=== PATIENT | male | born 1975 | race Hispanic/Latino ===

== ENCOUNTER 2016-11-06 15:18 | Emergency (ER) | payer OTHER ==
[2016-11-06 15:40] VITALS: BMI 30.7
[2016-11-06 15:41] VITALS: BP 121/90; PULSE 78; RESP 16; TEMP 98.6; O2SAT 98
--- NOTE | 2016-11-06 15:57 | ED PDOC ---
Arrival/HPI - General Chief Complaint: ENT Problem Time Seen by Provider: 11/06/16 15:50 Historian: Patient - History of Present Illness Narrative History of Present Illness (Text): 11/06/16 15:57 41yo male with PMHx of Hypertension present with right ear pain and feeling of "clogged right ear.. States he saw his PMD last week Monday and was started on Augmentin . He is suppose to take the last Augmentin on Monday. states taking it without relieve. Also reports taking 2tabs of Aleve today without relieve. Denies fever, chills, trauma, discharge from ear, any other complaint. Past Medical History - Provider Review Nursing Documentation Reviewed: Yes - Infectious Disease Hx of Infectious Diseases: None - Cardiac Hx Cardiac Disorders: Yes Hx Hypertension: Yes - Pulmonary Hx Respiratory Disorders: No - Neurological Hx Neurological Disorder: No - HEENT Hx HEENT Disorder: No - Endocrine/Metabolic Hx Endocrine Disorders: No Hx Diabetes Mellitus Type 2: No - Hematological/Oncological Hx Blood Disorders: Yes Hx Cancer: Yes (TESTICULAR) Other/Comment: "tested positive for factor V clotting disorder". R tesitcle removed. - Integumentary Hx Dermatological Disorder: No - Musculoskeletal/Rheumatological Hx Musculoskeletal Disorders: No - Gastrointestinal Hx Gastrointestinal Disorders: Yes Hx Gastroesophageal Reflux: Yes - Genitourinary/Gynecological Hx Genitourinary Disorders: Yes Other/Comment: R testicle cancer - removed - Psychiatric Hx Psychophysiologic Disorder: Yes Hx Anxiety: Yes Hx Substance Use: No - Surgical History Other/Comment: R testicular cancer - removed. Deviated septum - Anesthesia Hx Anesthesia: Yes Hx Anesthesia Reactions: No Hx Malignant Hyperthermia: No Family/Social History - Physician Review Nursing Documentation Reviewed: Yes Family/Social History: Unknown Family HX Smoking Status: chew tob. Hx Alcohol Use: No Hx Substance Use: No Allergies/Home Meds Allergies/Adverse Reactions: Allergies cefuroxime axetil [From Ceftin] Allergy (Verified 11/06/16 15:40) RASH iodine Allergy (Verified 11/06/16 16:04) RASH Penicillins Allergy (Verified 11/06/16 15:40) RASH Home Medications: Home Meds Medication Instructions Recorded Confirmed Losartan [Cozaar] 50 mg PO DAILY 06/30/16 11/06/16 Fluoxetine HCl [Prozac] 20 mg PO DAILY 09/25/16 11/06/16 Amoxicillin/Clavulanate [Augmentin 1 tab PO BID 11/06/16 11/06/16 875 MG-125 MG Tab] Review of Systems - Physician Review All systems were reviewed & negative as marked: Yes - Review of Systems Constitutional: Normal Eyes: Normal ENT: Other (Right ear pain) Respiratory: Normal Cardiovascular: Normal Gastrointestinal: Normal Genitourinary Male: Normal Musculoskeletal: Normal Skin: Normal Neurological: Normal Endocrine: Normal Hemo/Lymphatic: Normal Psychiatric: Normal Physical Exam Vital Signs Reviewed: Yes Vital Signs Temp Pulse Resp BP Pulse Ox 11/06/16 15:40 98.6 F 78 16 121/90 98 Temperature: Afebrile Blood Pressure: Normal Pulse: Regular Respiratory Rate: Normal Appearance: Positive for: Well-Appearing, Non-Toxic, Comfortable Pain Distress: None Mental Status: Positive for: Alert and Oriented X 3 - Systems Exam Head: Present: Atraumatic, Normocephalic Pupils: Present: PERRL Extroacular Muscles: Present: EOMI Conjunctiva: Present: Normal Ears: No: NORMAL TM (Whitish discoloration of right TM /soft tissue noted encroaching into the canal), Erythema, TM Bulging, Fluid, TM Perf Mouth: Present: Moist Mucous Membranes Neck: Present: Normal Range of Motion Respiratory/Chest: Present: Clear to Auscultation, Good Air Exchange. No: Respiratory Distress, Accessory Muscle Use Cardiovascular: Present: Regular Rate and Rhythm, Normal S1, S2. No: Murmurs Abdomen: Present: Normal Bowel Sounds. No: Tenderness, Distention, Peritoneal Signs Back: Present: Normal Inspection Upper Extremity: Present: Normal Inspection. No: Cyanosis, Edema Lower Extremity: Present: Normal Inspection. No: Edema Neurological: Present: GCS=15, CN II-XII Intact, Speech Normal Skin: Present: Warm, Dry, Normal Color. No: Rashes Psychiatric: Present: Alert, Oriented x 3, Normal Insight, Normal Concentration Medical Decision Making ED Course and Treatment: 11/06/16 18:35 PT in ED for stated history. He was afebrile. On Augmentin currently. CT was ordered to r/o mastoiditis, though pt have no sign of otitis extgerna on. Whitish TM/Soft tissue was noted extending to the canal on exam. He was given Solu medrol in ED Lab was unremarkable. Mastoid CT IMPRESSION: Density obstructing osseous right external auditory canal abutting the tympanic membrane in continuing further medially to abut the malleus.. Differential considerations include impacted cerumen, otitis externa, and dermatologic lesion including but not limited to squamous cell carcinoma. Portion of the density abutting the malleus is likely related although raises possibility of otitis media or cholesteatoma. Correlation with direct visualization findings recommended. Sinusitis as above. Small masslike density filling and mildly expanding left anterior ethmoid air cell with demineralization and erosion of the adjacent medial wall the orbit raises possibility of a mucocele or polyp. Plan was to admit patient for IV abx and further evaluation by the ENT. Plan was also DW Dr. Beauchamp who agreed with the plan Result and plan was DW the pt. He declined admission stating that he will rather follow up with the ENT as outpt. The seriousness of the finding in the CT was DW the pt and the risk of permanent hearing loss, worsening symptoms, sepsis. He expressed understanding of these risk and still insist on signing out AMA. He also declined IV clindamycin in ED. PO clinda and rx Clindamycin was added to the Augmentin he takes. He was strongly advised to f/u with the ENT tomorrow. Copy of his CT was given to him. Advised to return to ED if he can's see the ENT tomorrow or for worsening symptoms. - Lab Interpretations Lab Results: 11/06/16 16:20 11/06/16 16:20 Lab Results 11/06/16 16:20: WBC 8.6 D, RBC 5.29, Hgb 15.7, Hct 44.3, MCV 83.7, MCH 29.7, MCHC 35.4, RDW 13.1, Plt Count 265, MPV 10.1, Gran % 64.9, Lymph % (Auto) 25.4, Hettinger % (Auto) 6.2 H, Eos % (Auto) 3.0, Baso % (Auto) 0.5, Gran # 5.58, Lymph # 2.2, Hettinger # 0.5, Eos # 0.3, Baso # 0.04, Sodium 138, Potassium 4.0, Chloride 100 , Carbon Dioxide 26, Anion Gap 16, BUN 16, Creatinine 0.9, Est GFR ( Amer ) > 60, Est GFR (Non-Af Amer) > 60, Random Glucose 77, Calcium 9.7, Total Bilirubin 0.7, AST 27, ALT 45, Alkaline Phosphatase 49, Total Protein 8.4 H, Albumin 4.7, Globulin 3.8, Albumin/Globulin Ratio 1.2 - RAD Interpretation Radiology Orders: 11/06/16 15:50 MASTOID W/ CONTRAST [CT] Stat - Medication Orders Current Medication Orders: Discontinued Medications Clindamycin HCl (Cleocin) 300 mg PO STAT STA PRN Reason: Protocol Stop: 11/06/16 18:58 Last Admin: 11/06/16 19:21 Dose: 300 MG Diphenhydramine HCl (Benadryl) 25 mg IVP STAT STA Stop: 11/06/16 16:21 Last Admin: 11/06/16 16:41 Dose: 25 MG IVP Administration Document 11/06/16 16:41 [facility] (Rec: 11/06/16 16:41 [facility]) Charges for Administration # of IVP Administrations 1 Iohexol (Omnipaque 350 100 Ml) Confirm Administered Dose 350 mg .ROUTE .STK-MED ONE Stop: 11/06/16 17:04 Methylprednisolone (Solu-Medrol) 125 mg IVP STAT STA Stop: 11/06/16 16:21 Last Admin: 11/06/16 16:41 Dose: 125 MG IVP Administration Document 11/06/16 16:41 [facility] (Rec: 11/06/16 16:41 [facility]) Charges for Administration # of IVP Administrations 1 Disposition/Present on Arrival - Present on Arrival Any Indicators Present on Arrival: No History of DVT/PE: No History of Uncontrolled Diabetes: No Urinary Catheter: No History of Decub. Ulcer: No History Surgical Site Infection Following: None - Disposition Have Diagnosis and Disposition been Completed?: Yes Diagnosis: Otitis media Disposition: AGAINST MEDICAL ADVICE Disposition Time: 19:00 Condition: GUARDED Additional Instructions: Take medication as directed Follow up with the ENT, Dr. High Return to ED for any new or worsening symptoms Prescriptions: Clindamycin [Cleocin] 300 mg PO TID #30 cap traMADol [Ultram] 50 mg PO TID #10 tab Referrals: Katey Herrera MD [Primary Care Provider] - Follow up with primary Junior High DO [Staff Provider] - Follow up with primary
[2016-11-06] MEDS ORDERED: DiphenhydrAMINE 50 mg/ml Inj IVP STA (16:20)
[2016-11-06 16:27] LABS: ADD MANUAL DIFF? NO
[2016-11-06 16:36] LABS: BASO # 0.04 K/mm3 (0.0-2.0); BASO % 0.5 % (0.0-3.0); EOS # 0.3 (0.0-0.7); GRAN # 5.58 (1.4-6.5); GRAN % 64.9 % (50.0-68.0); HEMATOCRIT 44.3 % (42.0-52.0); LYMPH # 2.2 (1.2-3.4); LYMPH % 25.4 % (22.0-35.0); MEAN CELL VOLUME 83.7 fL (80.0-105.0); MEAN CORPUSCULAR HEMOGLOBIN 29.7 pg (25.0-35.0); MEAN CORPUSCULAR HGB CONC 35.4 g/dl (31.0-37.0); MEAN PLATELET VOLUME 10.1 fl (7.0-11.0); MONO # 0.5 (0.1-0.6); MONO % 6.2 % (1.0-6.0); PLATELET COUNT 265 10^3/uL (120.0-450.0); RED CELL DISTRIBUTION WIDTH 13.1 % (11.5-14.5); WHITE BLOOD COUNT 8.6 10^3/ul (4.5-11.0)
[2016-11-06 16:48] LABS: ALB/GLOB RATIO 1.2 (1.1-1.8); ALKALINE PHOSPHATASE 49 U/L (38-133); ALT/SGPT 45 U/L (7-56); AST/SGOT 27 U/L (15-59); BILIRUBIN,TOTAL 0.7 mg/dL (0.2-1.3); BLOOD UREA NITROGEN 16 mg/dL (7-21); CALCIUM 9.7 mg/dL (8.4-10.5); CARBON DIOXIDE 26 mmol/L (21-33); CHLORIDE 100 mmol/L (98-107); GFR AFRICAN-AMERICAN > 60; GLUCOSE,RANDOM 77 mg/dL (70-110); SODIUM 138 mmol/L (132-148); TOTAL PROTEIN 8.4 g/dL (5.8-8.3)
[2016-11-06] MEDS ORDERED: Iohexol 350 MG/100 ML VIAL ONE (17:03)
--- NOTE | 2016-11-07 11:41 | CT ---
PROCEDURE: CT OF THE TEMPORAL BONES WITH CONTRAST HISTORY: Right ear pain COMPARISON: None available. TECHNIQUE: Following administration of iodinated intravenous contrast, high resolution axial images of the temporal bones were obtained. Coronal and sagittal reformats were generated. Contrast dose: 90 mL Omnipaque 350 Radiation dose: Total exam DLP = 795.35 mGy-cm. This CT exam was performed using one or more of the following dose reduction techniques: Automated exposure control, adjustment of the mA and/or kV according to patient size, and/or use of iterative reconstruction technique. FINDINGS: RIGHT TEMPORAL BONE: RIGHT MIDDLE EAR: Normal RIGHT INNER EAR: Cochlea: Normal Semicircular canals: Normal RIGHT MASTOID AIR CELLS: The mastoid air cells are well developed and well aerated. There is no abnormal soft tissue or fluid. RIGHT INTERNAL AUDITORY CANAL: There is 6 x 6 mm abnormal soft tissue in the deep external auditory canal abutting the tympanic membrane. Abnormal soft tissue also extends into the Prussak's space and abuts the lateral surface of the ossicles. There is no definite evidence of ossicular erosion. There is mild mass effect on the scutum without erosion. RIGHT EXTERNAL AUDITORY CANAL: Normal RIGHT VESTIBULAR AND COCHLEAR AQUEDUCT: Normal LEFT TEMPORAL BONE: LEFT MIDDLE EAR: Normal LEFT INNER EAR: Cochlea: Normal Semicircular canals: Normal LEFT MASTOID AIR CELLS: Normal LEFT INTERNAL AUDITORY CANAL: Normal LEFT EXTERNAL AUDITORY CANAL: Normal LEFT VESTIBULAR AND COCHLEAR AQUEDUCTS: Normal OTHER FINDINGS: There is abnormal soft tissue in the frontal sinuses, aerosolized secretions in the right sphenoid chamber, retention cysts/polyps in the maxillary sinuses and mucosal thickening in the maxillary sinus, ethmoid air cells and left sphenoid chamber. Also noted is a polypoid soft tissue density in the left anterior ethmoid air cell expanding and thinning the lateral sinus wall, likely a polyp. IMPRESSION: 1. Abnormal soft tissue in the deep right external auditory canal abutting the tympanic membrane and extending into the middle ear cavity lateral to the ossicular chain without definite evidence of erosion. The differential considerations include cerumen, otitis externa however neoplasm including squamous cell carcinoma cannot be excluded. Abnormal soft tissue in the lateral aspect of the middle ear cavity could represent acute and/or chronic otitis media or cholesteatoma. Pansinusitis. Aerosolized secretions in the right sphenoid chamber could represent acute sinusitis in the appropriate clinical setting. A preliminary report was provided by [facility].
== END 2016-11-06 19:21 | disposition left against medical advice (07) ==
LOC: ED 15:18
DX: H66.91 Otitis media, unspecified, right ear (principal); I10 Essential (primary) hypertension; Z72.0 Tobacco use
CPT/HCPCS: 70481; 80053; 85025; 96374; 96375; 99282; J1200; J2930; Q9967

== ENCOUNTER 2017-01-03 12:42 | Emergency (ER) | payer OTHER ==
[2017-01-03 13:02] VITALS: RESP 18; TEMP 98.7; O2SAT 98; BMI 31.4
--- NOTE | 2017-01-03 13:25 | ED PDOC ---
Arrival/HPI - General Chief Complaint: Abdominal Pain Time Seen by Provider: 01/03/17 13:03 Historian: Patient - History of Present Illness Narrative History of Present Illness (Text): 01/03/17 13:14 A 41 year old male, whose past medical history includes hypertension and anxiety , presents to the emergency department complaining of bilateral chest discomfort and throat discomfort for the past 3 days. Patient notes after eating he has a "rumbling" sensation in the epigastric region. Patient states he was seen by a underwriting clerks supervisor in 10/14 and had a stress test which was negative. Patient notes worsening cough over the past three days and some intermittent shortness of breath but denies any fever, chills, nausea, vomiting , diarrhea or other complaints at this time. Patient reports he chews tobacco and is constantly stressed because he works in a [employer]. Time/Duration: Other (3 days) Symptom Onset: Gradual Quality: Other Activities at Onset: Rest Context: Home Past Medical History - Provider Review Nursing Documentation Reviewed: Yes - Infectious Disease Hx of Infectious Diseases: None - Cardiac Hx Hypertension: Yes - Pulmonary Hx Respiratory Disorders: No - Neurological Hx Neurological Disorder: No - HEENT Hx HEENT Disorder: No - Endocrine/Metabolic Hx Endocrine Disorders: No Hx Diabetes Mellitus Type 2: Yes (controlled) - Hematological/Oncological Hx Blood Disorders: Yes Hx Cancer: Yes (TESTICULAR) Other/Comment: "tested positive for factor V clotting disorder". R tesitcle removed. - Integumentary Hx Dermatological Disorder: No - Musculoskeletal/Rheumatological Hx Musculoskeletal Disorders: No - Gastrointestinal Hx Gastrointestinal Disorders: Yes Hx Gastroesophageal Reflux: Yes - Genitourinary/Gynecological Hx Genitourinary Disorders: Yes Other/Comment: R testicle cancer - removed - Psychiatric Hx Anxiety: Yes Hx Substance Use: No - Surgical History Other/Comment: R testicular cancer - removed. Deviated septum - Anesthesia Hx Anesthesia: Yes Hx Anesthesia Reactions: No Hx Malignant Hyperthermia: No Family/Social History - Physician Review Nursing Documentation Reviewed: Yes Family/Social History: Unknown Family HX Smoking Status: chew tobac Hx Alcohol Use: No Hx Substance Use: No Allergies/Home Meds Allergies/Adverse Reactions: Allergies cefuroxime axetil [From Ceftin] Allergy (Verified 01/03/17 13:02) RASH iodine Allergy (Verified 01/03/17 13:02) RASH Penicillins Allergy (Verified 01/03/17 13:02) RASH Home Medications: Home Meds Medication Instructions Recorded Confirmed Losartan [Cozaar] 50 mg PO DAILY 06/30/16 01/03/17 Fluoxetine HCl [Prozac] 20 mg PO DAILY 09/25/16 01/03/17 Clonazepam [Klonopin] 0.5 mg PO DAILY 01/03/17 01/03/17 Review of Systems - Physician Review All systems were reviewed & negative as marked: Yes - Review of Systems Constitutional: absent: Fevers Respiratory: SOB, Cough Cardiovascular: Chest Pain Gastrointestinal: Abdominal Pain. absent: Nausea, Vomiting Physical Exam Vital Signs Reviewed: Yes Vital Signs Temp Pulse Resp BP Pulse Ox 01/03/17 15:38 79 18 132/79 98 01/03/17 12:58 98.7 F 83 18 134/85 98 Temperature: Afebrile Blood Pressure: Normal Pulse: Regular Respiratory Rate: Normal Appearance: Positive for: Well-Appearing, Non-Toxic, Comfortable Pain Distress: None Mental Status: Positive for: Alert and Oriented X 3 - Systems Exam Head: Present: Atraumatic, Normocephalic Pupils: Present: PERRL Extroacular Muscles: Present: EOMI Conjunctiva: Present: Normal Mouth: Present: Moist Mucous Membranes Neck: Present: Normal Range of Motion Respiratory/Chest: Present: Clear to Auscultation, Good Air Exchange. No: Respiratory Distress, Accessory Muscle Use Cardiovascular: Present: Regular Rate and Rhythm, Normal S1, S2. No: Murmurs Abdomen: Present: Normal Bowel Sounds. No: Tenderness, Distention, Peritoneal Signs Back: Present: Normal Inspection Upper Extremity: Present: Normal Inspection. No: Cyanosis, Edema Lower Extremity: Present: Normal Inspection. No: Edema Neurological: Present: GCS=15, CN II-XII Intact, Speech Normal Skin: Present: Warm, Dry, Normal Color. No: Rashes Psychiatric: Present: Alert, Oriented x 3, Normal Insight, Normal Concentration Medical Decision Making ED Course and Treatment: 01/03/17 13:14 Impression: A 41 year old male with chest discomfort, throat discomfort and epigastric discomfort. Differential Diagnosis include but are not limited to: ACS vs. GERD vs. Anxiety Plan: -- EKG -- Chest X-ray -- Labs -- Protonix -- Reassess and disposition Prior Visits: Notes and results from previous visits were reviewed. The patient last presented to the emergency department on 12/29/16 for evaluation of a epigstric burning sensation that radiates to the chest. Progress Notes: EKG: Ordered, reviewed, and independently interpreted the EKG. Rate : 78 BPM Rhythm : NSR Interpretation : Normal intervals, normal axis, no ST/T changes. 01/03/17 14:50 Chest X-ray: Creator : Brittaney Adams MD COMPARISON: 09/25/2016. FINDINGS: LUNGS: The lungs are hyperinflated and there is peribronchial thickening with chronic changes in both lungs. There is no lobar pneumonia. PLEURA: No significant pleural effusion identified. No pneumothorax apparent. CARDIOVASCULAR: Normal. OSSEOUS STRUCTURES: Unremarkable for the patient's age. VISUALIZED UPPER ABDOMEN: Normal. OTHER FINDINGS: None. IMPRESSION: No active pulmonary disease. COPD. 01/03/17 16:36 Patient with noted history of epigastric and chest pain. He reports recent negative cardiac workup with normal ekg. Labs are unremarkable. CXR with peribronchial cuffing. Patient reported no improvement with protonix. He says he already took clonazepam today without relief. He was given a neb and robitussin and felt better. Will treat for bronchitis and recommend GI followup and follow up pmd. - Lab Interpretations Lab Results: 01/03/17 13:30 01/03/17 13:30 Lab Results 01/03/17 13:30: Lipase 99 01/03/17 13:30: Sodium 141, Potassium 4.2, Chloride 101, Carbon Dioxide 30, Anion Gap 14, BUN 13, Creatinine 0.9, Est GFR ( Amer) > 60, Est GFR (Non- Af Amer) > 60, Random Glucose 123 H, Calcium 9.7, Magnesium 2.0, Total Bilirubin 0.5, AST 30, ALT 41, Alkaline Phosphatase 48, Lactate Dehydrogenase 430, Total Creatine Kinase 117, Troponin I < 0.01, Total Protein 8.0, Albumin 4.7, Globulin 3.3, Albumin/Globulin Ratio 1.4 01/03/17 13:30: WBC 7.1, RBC 4.99, Hgb 14.8, Hct 42.8, MCV 85.8, MCH 29.7, MCHC 34.6, RDW 13.3, Plt Count 259, MPV 10.2, Gran % 68.0, Lymph % (Auto) 24.4, Harlan % (Auto) 4.6, Eos % (Auto) 2.7, Baso % (Auto) 0.3, Gran # 4.86, Lymph # 1.7, Harlan # 0.3, Eos # 0.2, Baso # 0.02 I have reviewed the lab results: Yes - RAD Interpretation Radiology Orders: 01/03/17 13:30 CHEST TWO VIEWS (PA/LAT) [RAD] Stat - Medication Orders Current Medication Orders: Discontinued Medications Guaifenesin (Robitussin) 400 mg PO ONCE STA Stop: 01/03/17 15:01 Last Admin: 01/03/17 15:41 Dose: 400 mg Levalbuterol HCl (Xopenex) 1.25 mg IH STAT STA Stop: 01/03/17 15:01 Last Admin: 01/03/17 15:41 Dose: 1.25 mg Pantoprazole Sodium (Protonix Inj) 40 mg IVP ONCE STA Stop: 01/03/17 13:29 Last Admin: 01/03/17 13:47 Dose: 40 mg - Scribe Statement The provider has reviewed the documentation as recorded by the Zachary Velázquez Provider Scribe Attestation: All medical record entries made by the Zachary were at my direction and personally dictated by me. I have reviewed the chart and agree that the record accurately reflects my personal performance of the history, physical exam, medical decision making, and the department course for this patient. I have also personally directed, reviewed, and agree with the discharge instructions and disposition. Disposition/Present on Arrival - Present on Arrival Any Indicators Present on Arrival: No History of DVT/PE: No History of Uncontrolled Diabetes: No Urinary Catheter: No History of Decub. Ulcer: No History Surgical Site Infection Following: None - Disposition Have Diagnosis and Disposition been Completed?: Yes Diagnosis: Bronchitis Disposition: HOME/ ROUTINE Disposition Time: 16:40 Patient Plan: Discharge Condition: GOOD Additional Instructions: Take the azithromycin as prescribed and use Robitussin (OTC) as directed. Also recommend follow up with gastroenterology for endoscopy. Return to the emergency department if any new concerning symptoms. Prescriptions: Albuterol HFA [Ventolin HFA 90 mcg/actuation (8 g)] 2 puff IH Q4H #1 inhaler Azithromycin [Zithromax] 2 tab PO DAILY #6 tab Pantoprazole [Protonix] 1 tab PO DAILY #20 ect Referrals: Katey Herrera MD [Primary Care Provider] - Follow up with primary Sascha Gutierrez DO [Staff Provider] - Follow up with primary Saleem Hoover MD [Staff Provider] - Follow up with primary Clayton Rose MD [Staff Provider] - Follow up with primary Nely Plascencia MD [Medical Doctor] - Follow up with primary
[2017-01-03 13:51] LABS: ADD MANUAL DIFF? NO
[2017-01-03 13:55] LABS: BASO # 0.02 K/mm3 (0.0-2.0); BASO % 0.3 % (0.0-3.0); EOS # 0.2 (0.0-0.7); EOS % 2.7 % (1.5-5.0); GRAN # 4.86 (1.4-6.5); HEMATOCRIT 42.8 % (42.0-52.0); LYMPH # 1.7 (1.2-3.4); LYMPH % 24.4 % (22.0-35.0); MEAN CELL VOLUME 85.8 fL (80.0-105.0); MEAN CORPUSCULAR HEMOGLOBIN 29.7 pg (25.0-35.0); MEAN CORPUSCULAR HGB CONC 34.6 g/dl (31.0-37.0); MEAN PLATELET VOLUME 10.2 fl (7.0-11.0); MONO # 0.3 (0.1-0.6); MONO % 4.6 % (1.0-6.0); PLATELET COUNT 259 10^3/uL (120.0-450.0); RED CELL DISTRIBUTION WIDTH 13.3 % (11.5-14.5); WHITE BLOOD COUNT 7.1 10^3/ul (4.5-11.0)
[2017-01-03 14:05] LABS: ALB/GLOB RATIO 1.4 (1.1-1.8); ALKALINE PHOSPHATASE 48 U/L (38-133); ALT/SGPT 41 U/L (7-56); AST/SGOT 30 U/L (15-59); BILIRUBIN,TOTAL 0.5 mg/dL (0.2-1.3); BLOOD UREA NITROGEN 13 mg/dL (7-21); CALCIUM 9.7 mg/dL (8.4-10.5); CARBON DIOXIDE 30 mmol/L (21-33); CHLORIDE 101 mmol/L (98-107); GFR AFRICAN-AMERICAN > 60; GLUCOSE,RANDOM 123 mg/dL (70-110); POTASSIUM 4.2 mmol/L (3.6-5.0); SODIUM 141 mmol/L (132-148)
[2017-01-03 14:17] LABS: TROPONIN I < 0.01 ng/mL
--- NOTE | 2017-01-03 14:44 | RAD ---
HISTORY: cough COMPARISON: 09/25/2016. TECHNIQUE: Chest PA and lateral FINDINGS: LUNGS: The lungs are hyperinflated and there is peribronchial thickening with chronic changes in both lungs. There is no lobar pneumonia. PLEURA: No significant pleural effusion identified. No pneumothorax apparent. CARDIOVASCULAR: Normal. OSSEOUS STRUCTURES: Unremarkable for the patient's age. VISUALIZED UPPER ABDOMEN: Normal. OTHER FINDINGS: None. IMPRESSION: No active pulmonary disease. COPD.
[2017-01-03] MEDS ORDERED: Levalbuterol 1.25 MG/3 ML Inhal Soln UD IH STA (15:00)
[2017-01-03] MEDS ORDERED: guaiFENesin 200 mg/10 ml Syrup UD PO STA (15:00)
[2017-01-03 15:38] VITALS: BP 132/79; PULSE 79
--- NOTE | 2017-01-04 11:01 | CARD ---
APPROVED REPORT EKG Measurement Heart [id number] <Conclusion> Sinus rhythm APC
== END 2017-01-03 16:50 | disposition home or self-care (01) ==
LOC: ED 12:42
DX: J40 Bronchitis, not specified as acute or chronic (principal); I10 Essential (primary) hypertension; F17.220 Nicotine dependence, chewing tobacco, uncomplicated
CPT/HCPCS: 71020; 80053; 82550; 83615; 83690; 83735; 84484; 85025; 93005; 96374; 99283; C9113

== ENCOUNTER 2017-01-14 20:24 | Emergency (ER) | payer OTHER ==
[2017-01-14 20:26] VITALS: BMI 32.1
[2017-01-14 21:29] LABS: ADD MANUAL DIFF? NO
[2017-01-14 21:31] LABS: BASO # 0.03 K/mm3 (0.0-2.0); BASO % 0.4 % (0.0-3.0); EOS # 0.3 (0.0-0.7); EOS % 3.7 % (1.5-5.0); GRAN # 5.02 (1.4-6.5); GRAN % 63.3 % (50.0-68.0); HEMATOCRIT 41.8 % (42.0-52.0); LYMPH # 2.1 (1.2-3.4); LYMPH % 25.9 % (22.0-35.0); MEAN CELL VOLUME 85.3 fL (80.0-105.0); MEAN CORPUSCULAR HEMOGLOBIN 29.2 pg (25.0-35.0); MEAN CORPUSCULAR HGB CONC 34.2 g/dl (31.0-37.0); MEAN PLATELET VOLUME 9.9 fl (7.0-11.0); MONO # 0.5 (0.1-0.6); MONO % 6.7 % (1.0-6.0); PLATELET COUNT 256 10^3/uL (120.0-450.0); RED CELL DISTRIBUTION WIDTH 13.5 % (11.5-14.5); WHITE BLOOD COUNT 7.9 10^3/ul (4.5-11.0)
[2017-01-14 21:47] LABS: ALB/GLOB RATIO 1.6 (1.1-1.8); ALKALINE PHOSPHATASE 43 U/L (38-133); ALT/SGPT 39 U/L (7-56); AST/SGOT 22 U/L (15-59); BILIRUBIN,TOTAL 0.5 mg/dL (0.2-1.3); BLOOD UREA NITROGEN 15 mg/dL (7-21); CALCIUM 10.1 mg/dL (8.4-10.5); CARBON DIOXIDE 25 mmol/L (21-33); CHLORIDE 102 mmol/L (98-107); GFR AFRICAN-AMERICAN > 60; GLUCOSE,RANDOM 77 mg/dL (70-110); POTASSIUM 4.8 mmol/L (3.6-5.0); SODIUM 139 mmol/L (132-148)
--- NOTE | 2017-01-14 21:58 | ED PDOC ---
Arrival/HPI - General Historian: Patient - History of Present Illness Time/Duration: 1 week Symptom Onset: Gradual Symptom Course: Unchanged Severity Level: 3 - General Chief Complaint: Cough, Cold, Congestion Time Seen by Provider: 01/14/17 20:35 - History of Present Illness Narrative History of Present Illness (Text): 01/14/17 21:30 41yr old male with hx of anxiety, seen in er 1 week ago and diagnosed with bronchitis presents today with continued symptoms. pt states he is having pain in the chest and shortness of breath. denies wheezing. no fever/chills. pt denies abdominal pain. no urinary symptoms. no back pain. denies sore throat or nasal congestion. pt states he has been using inhaler without improvement. 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 R tesitcle removed. - Integumentary Hx Dermatological Disorder: No - Musculoskeletal/Rheumatological Hx Musculoskeletal Disorders: No - Gastrointestinal Hx Gastrointestinal Disorders: Yes Hx Gastroesophageal Reflux: Yes - Genitourinary/Gynecological Hx Genitourinary Disorders: Yes Other/Comment: R testicle cancer - removed - Psychiatric Hx Anxiety: Yes Hx Substance Use: No - Surgical History Other/Comment: R testicular cancer - removed. Deviated septum - Anesthesia Hx Anesthesia: Yes Hx Anesthesia Reactions: No Hx Malignant Hyperthermia: No Family/Social History - Physician Review Nursing Documentation Reviewed: Yes Family/Social History: Other (factor 5 leiden) Smoking Status: Never Smoked Hx Alcohol Use: No Hx Substance Use: No Allergies/Home Meds Allergies/Adverse Reactions: Allergies cefuroxime axetil [From Ceftin] Allergy (Verified 01/14/17 20:28) RASH iodine Allergy (Verified 01/14/17 20:28) RASH Penicillins Allergy (Verified 01/14/17 20:28) RASH Home Medications: Home Meds Medication Instructions Recorded Confirmed Losartan [Cozaar] 50 mg PO DAILY 06/30/16 01/14/17 Fluoxetine HCl [Prozac] 20 mg PO DAILY 09/25/16 01/14/17 Clonazepam [Klonopin] 0.5 mg PO DAILY 01/03/17 01/14/17 Review of Systems - Review of Systems Constitutional: absent: Fatigue, Fevers ENT: Sinus Congestion. absent: Sore Throat Respiratory: SOB, Cough Cardiovascular: Chest Pain Gastrointestinal: absent: Abdominal Pain, Nausea, Vomiting Genitourinary Male: absent: Dysuria Musculoskeletal: absent: Arthralgias Skin: absent: Rash, Pruritis Psychiatric: absent: Anxiety, Depression Physical Exam Vital Signs Reviewed: Yes Temperature: Afebrile Blood Pressure: Hypertensive Pulse: Regular Respiratory Rate: Normal Appearance: Positive for: Well-Appearing, Non-Toxic, Comfortable Pain Distress: None Mental Status: Positive for: Alert and Oriented X 3 - Systems Exam Head: Present: Atraumatic Conjunctiva: Present: Normal Mouth: Present: Moist Mucous Membranes, Normal Lips. No: Drooling, Trismus Pharnyx: Present: Normal, Other (+ post nasal drip). No: ERYTHEMA, EXUDATE, TONSILS ENLARGED, Peritonsilar Swelling, Uvular Deviation, Muffled/Hoarse Voice , Soft Palate/Uvular Edema Nose (External): Present: Atraumatic Nose (Internal): Present: Normal Inspection, Clear Mucous Neck: Present: Normal Range of Motion Respiratory/Chest: Present: Clear to Auscultation, Good Air Exchange. No: Respiratory Distress, Accessory Muscle Use Cardiovascular: Present: Regular Rate and Rhythm, Normal S1, S2. No: Murmurs Abdomen: No: Tenderness, Rebound, Guarding Back: Present: Normal Inspection Lower Extremity: Present: Normal ROM. No: Edema, CALF TENDERNESS Neurological: Present: GCS=15, Speech Normal Skin: Present: Warm, Dry, Normal Color. No: Rashes Psychiatric: Present: Alert, Oriented x 3 Medical Decision Making ED Course and Treatment: 01/14/17 22:24 41yr old male with 1 week history of cough/sob and cp. seen multiple times for same complaints. stating he isnt feeling any better. cbc:wnl cmp: wnl d dimer; wnl trop; wnl ekg: NSR at 70 b/m normal axis, normal intervals, no st elevations. cxr; wnl pt non toxic well appearing; no distress. stable vitals. discussed all results in depth with patient; pt resting comfortably in er; no distress. wants to go home. pt recently completed zithromax zpack; last dose yesterday. pt was prescribed prednisone but states he didnt fill it; will give another rx for prednisone; advised flonase for nasal congestion and post nasal drip. pt was advised to f/u with PMD and return immediately if symptoms worsen, persist or if new symptoms develop. Patient verbalizes understanding of discharge instructions and need for immediate followup. all aspects of this case were discussed the attending of record. impression; cough prednisone daily x 5 days continue using nebulizer Use flonase; 2 sprays each nostril once daily Follow up with the primary care physician within the next 2 days. return if symptoms worsen,persist or if new symptoms develop. (Ana Whitman) - Lab Interpretations Lab Results: 01/14/17 21:20 01/14/17 21:20 Lab Results 01/14/17 22:21: Lactate Dehydrogenase 678, Total Creatine Kinase 135, Troponin I < 0.01 01/14/17 21:30: D-Dimer, Quantitative 0.30 01/14/17 21:20: WBC 7.9, RBC 4.90, Hgb 14.3, Hct 41.8 L, MCV 85.3, MCH 29.2, MCHC 34.2, RDW 13.5, Plt Count 256, MPV 9.9, Gran % 63.3, Lymph % (Auto) 25.9, [place] % (Auto) 6.7 H, Eos % (Auto) 3.7, Baso % (Auto) 0.4, Gran # 5.02, Lymph # 2.1, [place] # 0.5, Eos # 0.3, Baso # 0.03 01/14/17 21:20: Sodium 139, Potassium 4.8, Chloride 102, Carbon Dioxide 25, Anion Gap 17, BUN 15, Creatinine 0.8, Est GFR ( Amer) > 60, Est GFR (Non- Af Amer) > 60, Random Glucose 77, Calcium 10.1, Total Bilirubin 0.5, AST 22, ALT 39, Alkaline Phosphatase 43, Total Protein 7.0, Albumin 4.4, Globulin 2.7, Albumin/Globulin Ratio 1.6 - RAD Interpretation Radiology Orders: 01/14/17 21:05 CHEST TWO VIEWS (PA/LAT) [RAD] Stat Disposition/Present on Arrival - Present on Arrival Any Indicators Present on Arrival: No History of DVT/PE: No History of Uncontrolled Diabetes: No Urinary Catheter: No History of Decub. Ulcer: No History Surgical Site Infection Following: None - Disposition Have Diagnosis and Disposition been Completed?: Yes Disposition Time: 00:32 Patient Plan: Discharge - Disposition Diagnosis: Cough Disposition: HOME/ ROUTINE Condition: GOOD Discharge Instructions (ExitCare): Acute Cough (ED) Additional Instructions: prednisone daily x 5 days continue using nebulizer Use flonase; 2 sprays each nostril once daily Follow up with the primary care physician within the next 2 days. return if symptoms worsen,persist or if new symptoms develop. Prescriptions: Fluticasone Nasal [Flonase] 2 spr NS DAILY #1 spr predniSONE [predniSONE Tab] 3 tab PO DAILY #15 tab Referrals: Katey Herrera MD [Primary Care Provider] - Follow up with primary Forms: WORK NOTE
[2017-01-14 22:49] LABS: TROPONIN I < 0.01 ng/mL
[2017-01-14 23:04] VITALS: TEMP 97.6
[2017-01-15 01:17] VITALS: BP 126/70; PULSE 72; RESP 16; O2SAT 100
--- NOTE | 2017-01-15 09:31 | RAD ---
HISTORY: cough/sob x 1 week/ chest tightness COMPARISON: Chest x-ray performed 01/03/17 TECHNIQUE: Chest PA and lateral FINDINGS: LUNGS: No focal consolidation. Please note that chest x-ray has limited sensitivity for the detection of pulmonary masses. PLEURA: No significant pleural effusion identified. No definite pneumothorax . CARDIOVASCULAR: Heart size appears within normal limits. OSSEOUS STRUCTURES: Osseous demineralization. Mild kyphosis. Mild degenerative changes. VISUALIZED UPPER ABDOMEN: Unremarkable. OTHER FINDINGS: None. IMPRESSION: No focal consolidation, significant pleural effusion, or definite pneumothorax identified. Preliminary impression was provided by virtual radiologic.
--- NOTE | 2017-01-15 22:07 | CARD ---
APPROVED REPORT EKG Measurement Heart [id number] <Conclusion> Normal sinus rhythm Normal ECG
== END 2017-01-15 00:55 | disposition home or self-care (01) ==
LOC: ED 20:24
DX: R05 Cough (principal); I10 Essential (primary) hypertension; K21.9 Gastro-esophageal reflux disease without esophagitis

== ENCOUNTER 2018-01-30 13:39 | Emergency (ER) | payer OTHER ==
[2018-01-30 14:23] VITALS: BMI 34.2
[2018-01-30 14:34] VITALS: TEMP 98.4; O2SAT 99
--- NOTE | 2018-01-30 14:54 | RAD ---
HISTORY: COMPARISON: 01/14/2017. TECHNIQUE: Chest PA and lateral FINDINGS: LINES AND TUBES: None. LUNG AND PLEURA: The lungs are well inflated and clear. No pleural effusion or pneumothorax. HEART AND MEDIASTINUM: The heart is not enlarged. The hilar and mediastinal contours are within normal limits. SKELETAL STRUCTURES: The bony structures are within normal limits for the patient's age. VISUALIZED UPPER ABDOMEN: Normal. OTHER FINDINGS: None. IMPRESSION: No active pulmonary disease.
--- NOTE | 2018-01-30 15:30 | ED PDOC ---
Arrival/HPI - General Chief Complaint: Cough, Cold, Congestion Time Seen by Provider: 01/30/18 14:27 Historian: Patient - History of Present Illness Narrative History of Present Illness (Text): 01/30/18 15:27 42yo male with pmhx of hypertension who present with complaint of nonproductive cough and nasal congestion x 3days. States he took Benadryl without relieve. Denies fever, chills, SOB, wheezing, diaphoresis, nausea, vomiting, abdominal pain, any other complaint. Past Medical History - Provider Review Nursing Documentation Reviewed: Yes - Infectious Disease Hx of Infectious Diseases: None - Cardiac Hx Hypertension: Yes - Pulmonary Hx Respiratory Disorders: No - Neurological Hx Neurological Disorder: No - HEENT Hx HEENT Disorder: No - Endocrine/Metabolic Hx Endocrine Disorders: No Hx Diabetes Mellitus Type 2: Yes (controlled) - Hematological/Oncological Hx Blood Disorders: Yes Hx Cancer: Yes (TESTICULAR) - Integumentary Hx Dermatological Disorder: No - Musculoskeletal/Rheumatological Hx Musculoskeletal Disorders: No - Gastrointestinal Hx Gastrointestinal Disorders: Yes Hx Gastroesophageal Reflux: Yes - Genitourinary/Gynecological Hx Genitourinary Disorders: Yes Other/Comment: R testicle cancer - removed - Psychiatric Hx Anxiety: Yes Hx Substance Use: No - Surgical History Other/Comment: R testicular cancer - remove - Anesthesia Hx Anesthesia: Yes Hx Anesthesia Reactions: No Hx Malignant Hyperthermia: No Family/Social History - Physician Review Nursing Documentation Reviewed: Yes Family/Social History: Unknown Family HX Smoking Status: TOBACCO Hx Alcohol Use: No Hx Substance Use: No Allergies/Home Meds Allergies/Adverse Reactions: Allergies cefuroxime axetil [From Ceftin] Allergy (Verified 10/12/17 20:45) RASH iodine Allergy (Verified 10/12/17 20:45) RASH Penicillins Allergy (Verified 10/12/17 20:45) RASH Home Medications: Home Meds Medication Instructions Recorded Confirmed Losartan Potassium 15 mg PO DAILY 10/12/17 10/12/17 Review of Systems - Physician Review All systems were reviewed & negative as marked: Yes - Review of Systems Constitutional: Normal Eyes: Normal ENT: Sinus Congestion Respiratory: Cough Cardiovascular: Normal Gastrointestinal: Normal Genitourinary Male: Normal Musculoskeletal: Normal Skin: Normal Neurological: Normal Endocrine: Normal Hemo/Lymphatic: Normal Psychiatric: Normal Physical Exam Vital Signs Reviewed: Yes Vital Signs Temp Pulse Resp BP Pulse Ox 01/30/18 16:40 83 18 137/86 99 01/30/18 14:31 98.4 F 89 17 99 Temperature: Afebrile Blood Pressure: Normal Pulse: Regular Respiratory Rate: Normal Appearance: Positive for: Well-Appearing, Non-Toxic, Comfortable Pain Distress: None Mental Status: Positive for: Alert and Oriented X 3 - Systems Exam Head: Present: Atraumatic, Normocephalic Pupils: Present: PERRL Extroacular Muscles: Present: EOMI Conjunctiva: Present: Normal Mouth: Present: Moist Mucous Membranes Nose (Internal): Present: Normal Inspection Neck: Present: Normal Range of Motion Respiratory/Chest: Present: Clear to Auscultation, Good Air Exchange. No: Respiratory Distress, Accessory Muscle Use, Wheezes, Decreased Breath Sounds, Retracting, Rhonchi, Tachypneic Cardiovascular: Present: Regular Rate and Rhythm, Normal S1, S2. No: Murmurs Abdomen: No: Tenderness, Distention, Peritoneal Signs Back: Present: Normal Inspection Upper Extremity: Present: Normal Inspection. No: Cyanosis, Edema Lower Extremity: Present: Normal Inspection. No: Edema Neurological: Present: GCS=15, CN II-XII Intact, Speech Normal Skin: Present: Warm, Dry, Normal Color. No: Rashes Psychiatric: Present: Alert, Oriented x 3, Normal Insight, Normal Concentration Medical Decision Making ED Course and Treatment: 01/30/18 21:11 PT was hemodynamically stable and comfortable in ED CXR NAD He was treated symptomatically with antitussive and antihistamine. Referred to his PMD. - RAD Interpretation Radiology Orders: 01/30/18 14:36 CHEST TWO VIEWS (PA/LAT) [RAD] Stat - Medication Orders Current Medication Orders: Discontinued Medications Benzonatate (Tessalon Perles) 100 mg PO ONCE STA Stop: 01/30/18 15:27 Last Admin: 01/30/18 16:21 Dose: 100 mg Loratadine (Claritin) 10 mg PO ONCE ONE Stop: 01/30/18 15:28 Last Admin: 01/30/18 16:18 Dose: 10 mg Disposition/Present on Arrival - Present on Arrival Any Indicators Present on Arrival: No History of DVT/PE: No History of Uncontrolled Diabetes: No Urinary Catheter: No History of Decub. Ulcer: No History Surgical Site Infection Following: None - Disposition Have Diagnosis and Disposition been Completed?: Yes Diagnosis: Cough Disposition: HOME/ ROUTINE Disposition Time: 15:35 Patient Plan: Discharge Condition: STABLE Discharge Instructions (ExitCare): Cough in Adults Additional Instructions: Follow up with your Doctor Return to ED for any new symptoms Prescriptions: Benzonatate [Tessalon Perles] 100 mg PO TID #20 sgl Loratadine/Pseudoephedrine [Claritin-D 24 Hour Tablet] 1 each PO DAILY #30 tab.er.24h Referrals: [facility] at [facility] [Outside] - Follow up with primary Forms: [email or web address] (Polish)
[2018-01-30 16:41] VITALS: BP 137/86; PULSE 83; RESP 18
== END 2018-01-30 16:40 | disposition home or self-care (01) ==
LOC: ED 13:39
DX: R05 Cough (principal); I10 Essential (primary) hypertension; Z72.0 Tobacco use